=== PATIENT | female | born 1955 | race Caucasian/White ===

== ENCOUNTER 2024-08-23 07:14 | Day surgery (SDC) | payer MEDICARE, OTHER ==
[2024-08-20 12:15] LABS: BASOPHILS # (AUTO) 0.1 X10'3 (0-0.2); EOSINOPHILS # (AUTO) 0.3 X10'3 (0-0.9); EOSINOPHILS % (AUTO) 3.2 % (0-6); LYMPHOCYTES # (AUTO) 2.1 X10'3 (1.1-4.8); LYMPHOCYTES % (AUTO) 22.9 % (21-51); MEAN CORPUSCULAR HEMOGLOBIN 30.5 PG (27.0-31.0); MEAN CORPUSCULAR HGB CONC 33.6 g/dL (33.0-36.5); MEAN CORPUSCULAR VOLUME 90.8 FL (78-98); MEAN PLATELET VOLUME 8.1 FL (7.4-10.4); MONOCYTES # (AUTO) 0.7 X10'3 (0-0.9); MONOCYTES % (AUTO) 7.2 % (2-12); NEUTROPHILS % (AUTO) 65.7 % (42-75); PRE OP HEMOGLOBIN 13.1 g/dL (12.0-16.0); PRE OP PLATELET COUNT 233 X10'3 (140-440); PRE OP WHITE BLOOD COUNT 9.2 10'3 (4.8-10.8); RED CELL DISTRIBUTION WIDTH 13.2 % (11.5-14.5)
[2024-08-20 12:27] LABS: ALBUMIN 3.3 G/DL (3.4-5.0); ALBUMIN/GLOBULIN RATIO 0.8 (1.1-1.5); ALKALINE PHOSPHATASE 154 IU/L (46-116); BLOOD UREA NITROGEN 20 MG/DL (7-18); BUN/CREATININE RATIO 37.7 (10.0-20.0); CALCIUM 9.1 MG/DL (8.5-10.1); CHLORIDE 104 MMOL/L (99-107); CREATININE 0.53 MG/DL (0.40-0.90); PRE OP ALT 57 U/L (30-65); PRE OP ANION GAP 7 (8-16); PRE OP AST 28 U/L (10-37); PRE OP BILIRUB, TOTAL 0.3 MG/DL (0.0-1.0); PRE OP GLUCOSE 101 MG/DL (70-104); PRE OP SODIUM 139 MMOL/L (135-145); TOTAL CARBON DIOXIDE 28.3 MMOL/L (24-32); TOTAL PROTEIN 7.3 G/DL (6.4-8.2); eGFR > 90 ML/MIN
[~2024-08-23] VITALS: Ht 167.6 cm; Wt 61.3 kg
[2024-08-23] VITALS (9 sets, daily range): BP systolic 121–177; BP diastolic 70–89; PULSE 59–102; RESP 12–22; TEMP 97.7; O2SAT 95–99
[~2024-08-23 07:14] MED LIST: ALBU18HF2 INH; CYCL-394 PO; FLUO-167 PO; IBUP-24 PO; LISI10TA27 PO
[2024-08-23] MEDS: famotidine 20mg tablet PO ONE (07:55)
[2024-08-23] MEDS: ringers solution, lacted 1,000 ML IV SCH (07:55)
[2024-08-23] MEDS ORDERED: morphine 4 MG/ML inj SYRINge IV PRN (09:30)
[2024-08-23] MEDS ORDERED: proCHLORperazine 10 MG/2 ml inj IV PRN (09:30)
[2024-08-23] MEDS ORDERED: ondansetron/PF 4mg/2ml inj IV PRN (09:30)
[2024-08-23] MEDS ORDERED: meperidine/PF 25mg/ml syringe IV PRN (09:30)
[2024-08-23] MEDS ORDERED: ringers solution, lacted 1,000 ML IV SCH (09:30)
[2024-08-23] MEDS ORDERED: morphine 2 MG/ML inj. syringe IV PRN (09:30)
[2024-08-23] MEDS ORDERED: labetalol 20mg/4ml (5mg/ml) syringe IV PRN (09:30)
[2024-08-23] MEDS: oxymetazoline 15 ML nasal spray NS ONE (09:31)
[2024-08-23] MEDS ORDERED: fentaNYL/PF 50MCG/1 ML 2ML syringe ONE (09:45)
[2024-08-23] MEDS ORDERED: propofol inj 20 ML IV ONE (09:48)
[2024-08-23] MEDS ORDERED: LIDOCAINE 4% (40MG/ML) topical solution 50ml **BRONCH ONLY ONE (09:57)
[2024-08-23] MEDS ORDERED: epiNEPHrine 1 MG/ML 1 ml ampule **BRONCH ONLY ONE (09:57)
[2024-08-23] MEDS ORDERED: ipratropium/albuterol 3ml nebule NEB PRN (10:25)
== END 2024-08-23 11:16 | disposition home or self-care (01) ==
LOC: PAS 07:14
PROVIDERS: ATTEND Internal Medicine Critical Care Medicine
DX: C34.32 Malignant neoplasm of lower lobe, left bronchus or lung (principal); Z79.899 Other long term (current) drug therapy; Z98.890 Other specified postprocedural states; I10 Essential (primary) hypertension; F32.A Depression, unspecified; Z85.3 Personal history of malignant neoplasm of breast
CPT/HCPCS: 31653; 36415; 71250; 80053; 82948; 85025; 87015; 87070; 87116; 87206; 93005; 94760; J2704; J3010; J7120; Z7506; Z7512; Z7610; 31624; 31628; 31654; 88173; 88305; 88341; 88342; J0171